=== PATIENT | male | born 1985 | race Caucasian/White ===

== ENCOUNTER 2023-05-03 07:53 | Emergency (ER) | payer SELFPAY ==
[~2023-05-03] VITALS: Ht 177.8 cm; Wt 81.0 kg
[2023-05-03 07:56] VITALS: O2SAT 96
[2023-05-03 12:51] VITALS: BP 155/99; PULSE 103; RESP 20; TEMP 98.5
== END 2023-05-03 13:14 | disposition home or self-care (01) ==
LOC: ER 07:53
DX: H52.11 Myopia, right eye (principal); I10 Essential (primary) hypertension
CPT/HCPCS: 99281